=== PATIENT | male | born 1960 | race American Indian/Alaskan Native ===

== ENCOUNTER 2019-10-13 08:45 | Emergency (ER) | payer MEDICARE, OTHER ==
[~2019-10-13] VITALS: Ht 165.1 cm; Wt 72.6 kg
[2019-10-13] MEDS ORDERED: ASPIR 8181 MG PO (09:00)
[2019-10-13] MEDS ORDERED: VITAMIN D32000 UNI2 PO (09:01)
[2019-10-13] MEDS ORDERED: GLUCOTROL5 MG PO (09:01)
[2019-10-13] MEDS ORDERED: NEPHRO-VITE TA0.8 MG PO (09:02)
[2019-10-13] MEDS ORDERED: LOSARTAN POTASS25 MG PO (09:02)
[2019-10-13] MEDS ORDERED: VALIUM5 MG PO (09:13)
[2019-10-16] MEDS ORDERED: NORVASC5 MG PO (04:49)
== END 2019-10-13 09:59 | disposition home or self-care (01) ==
LOC: ED 08:45
DX: M43.6 Torticollis (principal); I10 Essential (primary) hypertension; E11.9 Type 2 diabetes mellitus without complications; F17.200 Nicotine dependence, unspecified, uncomplicated; Z79.82 Long term (current) use of aspirin; Z79.899 Other long term (current) drug therapy
CPT/HCPCS: 96372; 99283; J3360

== ENCOUNTER 2020-04-22 08:55 | Emergency (ER) | payer MEDICARE, OTHER ==
[~2020-04-22] VITALS: Ht 165.1 cm; Wt 72.6 kg
[~2020-04-22 08:55] MED LIST: ASPIR 8181 MG PO; GLUCOTROL5 MG PO; LOSARTAN POTASS25 MG PO; NEPHRO-VITE TA0.8 MG PO; NORVASC5 MG PO; VALIUM5 MG PO; VITAMIN D32000 UNI2 PO
--- OUTSIDE RECORDS SUMMARY | 2020-04-22 08:58 | XMS ---
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 Mayuri VISIT COUNT (12 MO.) 1 Emilio Delacruz TOTAL 4 NOTE: Visits indicate total known visits. ED/UCC VISIT TRACKING (12 MO.) 04/22/2020 08:56 TARIK Pat TYPE: Emergency COMPLAINT: - EXTREME PAIN 11/26/2019 10:32 Emilio HOLLIS TYPE: Emergency COMPLAINT: - BACK PAIN 10/16/2019 04:26 TARIK Pat TYPE: Emergency COMPLAINT: - BACK PAIN DIAGNOSES: - Sepsis, unspecified organism - Type 2 diabetes mellitus without complications - Cervicalgia - Low back pain - Essential (primary) hypertension - halfway (current) use of aspirin - Allergy status to other drugs, medicaments and biological sub - Nicotine dependence, unspecified, uncomplicated - Other care home (current) drug therapy - Dependence on renal dialysis 10/13/2019 08:46 TARIK Lance [place] TYPE: Emergency COMPLAINT: - LT SIDE NECK/ARM PAIN, NO INJURY DIAGNOSES: - Essential (primary) hypertension - Type 2 diabetes mellitus without complications - Torticollis - Other care home (current) drug therapy - Cervicalgia - Nicotine dependence, unspecified, uncomplicated - 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 Disruption of external operation (surgical) wound, not elsewh 1. Disruption of external operation (surgical) wound, not elsewh 2. End stage renal disease 3. Hypertensive chronic kidney disease with stage 5 chronic kidn 4. Bacteremia 5. Personal history of nicotine dependence 6. Type 2 diabetes mellitus with diabetic chronic kidney disease 7. Dependence on renal dialysis 8. halfway (current) use of insulin 9. Methicillin resistant Staphylococcus aureus infection as the 10. 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 Other disorders of mineral metabolism 12. Hyperkalemia 13. Hypermagnesemia 14. Anemia, unspecified 10/16/2019 10:53 Emilio Aniya Ed Siddiqui [place] TYPE: Medical Surgical COMPLAINT: - BACK PAIN DIAGNOSES: 0. Dorsalgia, unspecified 1. Sepsis due to Methicillin resistant Staphylococcus aureus 2. Intraspinal abscess and granuloma 3. End stage renal disease 4. Pneumonia, unspecified organism 4. Psoas muscle abscess 5. Abscess of liver 5. Psoas muscle abscess 6. Abscess of liver 6. Pneumonia due to Methicillin resistant Staphylococcus aureus 7. Staphylococcal arthritis, vertebrae 8. Osteomyelitis of vertebra, lumbar region 9. Septic arterial embolism 10. Hypertensive heart and chronic kidney disease with heart fail 11. Chronic diastolic (congestive) heart failure 12. Hypo-osmolality and hyponatremia 13. Cellulitis of right lower limb 14. Disorder of bone, unspecified 15. Type 2 diabetes mellitus with diabetic chronic kidney disease 16. Other disorders of plasma-protein metabolism, not elsewhere c 17. Other disorders of bilirubin metabolism 18. Fluid overload, unspecified 19. Hyperkalemia 20. Solitary pulmonary nodule 21. Acute respiratory distress 22. Anemia in chronic kidney disease 23. Nicotine dependence, cigarettes, uncomplicated 24. Non-pressure chronic ulcer of other part of right foot with u 25. Discitis, unspecified, lumbar region 26. Cannabis use, unspecified, uncomplicated 27. Abnormal levels of other serum enzymes 28. Calculus of gallbladder without cholecystitis without obstruc 29. Periapical abscess without sinus 30. Glossitis 31. Fatty (change of) liver, not elsewhere classified 32. Patient's noncompliance with renal dialysis 33. 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
[2020-04-22] MEDS ORDERED: ULTRAM50 MG PO (09:16)
[2020-04-22] MEDS ORDERED: NORCO 10-325 T1 EACH PO (09:38)
== END 2020-04-22 09:50 | disposition home or self-care (01) ==
LOC: ED 08:55
DX: E11.42 Type 2 diabetes mellitus with diabetic polyneuropathy (principal); I12.0 Hypertensive chronic kidney disease with stage 5 chronic kidney disease or end stage renal disease; E11.22 Type 2 diabetes mellitus with diabetic chronic kidney disease; N18.6 End stage renal disease; Z99.2 Dependence on renal dialysis; F17.200 Nicotine dependence, unspecified, uncomplicated; Z88.8 Allergy status to other drugs, medicaments and biological substances; Z79.899 Other long term (current) drug therapy; Z79.82 Long term (current) use of aspirin; Z79.84 Long term (current) use of oral hypoglycemic drugs
CPT/HCPCS: 99283

== ENCOUNTER 2021-04-11 19:58 | Emergency (ER) | payer MEDICARE, OTHER ==
[~2021-04-11] VITALS: Ht 165.1 cm; Wt 72.6 kg
[~2021-04-11 19:58] MED LIST changes: +NORCO 10-325 T1 EACH PO; +ULTRAM50 MG PO
--- OUTSIDE RECORDS SUMMARY | 2021-04-11 20:00 | XMS ---
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 \F\ [employer] PHONE: [phone] MIRELA FOWLER [facility] Current PHONE: [phone] [facility] 04/23/2020-[facility] PHONE: [phone] Sandy has no Care Guidelines for this patient. Care History Medical/Surgical 04/23/2020 [facility] - PATIENT IS A [facility] ELIGIBLE, \T\middot;\T\nbsp; PLEASE REFER PATIENT TO [facility] FOR NON EMERGENT MEDICAL NEEDS. \T\middot;\T\nbsp; [facility] CAN SEE PATIENTS SAME DAY FOR APTS IF PATIENT CALLS FIRST THING IN THE MORNING. Mayuri VISIT COUNT (12 MO.) 2 TARIK Delacruz TOTAL 2 NOTE: Visits indicate total known visits. ED/UCC VISIT TRACKING (12 MO.) 04/11/2021 19:58 TARIK Lance [place] TYPE: Emergency COMPLAINT: - SHORTNESS OF BREATH 04/22/2020 08:[address] 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 - Dorsalgia, unspecified - Dependence on renal dialysis - Type 2 diabetes mellitus with diabetic chronic kidney disease - Other penitentiary (current) drug therapy - Type 2 diabetes mellitus with diabetic polyneuropathy - Hypertensive chronic kidney disease with stage 5 chronic kidney disease or end stage renal disease - skilled nursing (current) use of aspirin - Allergy status to other drugs, medicaments and biological substances - End stage renal disease - Nicotine dependence, unspecified, uncomplicated INPATIENT VISIT TRACKING (12 MO.) No inpatient visits to display in this time frame [email or web address]
[2021-04-11] MEDS ORDERED: AMITRIPTYLINE H25 MG PO (20:06)
--- NOTE | 2021-04-14 13:31 | EKG ---
[facility] [address] [facility] [place] [address] Signed Sinus tachycardia T wave abnormality, consider lateral ischemia Abnormal ECG When compared with ECG of 16-OCT-2019 06:23, T wave inversion now evident in Lateral leads Confirmed by MARCO WATERS MD ([id number]) on 04/14/2021 1:31:19 PM Electronically Signed By: MARCO WATERS MD 04/14/21 1331 PATIENT NAME: MARY ANNDEVIN TRESA Electrocardiogram DATE OF : 62 PHYSICIAN: MARCO WTAERS MD REPORT #: [id number] REPORT IS CONFIDENTIAL AND NOT TO BE RELEASED WITHOUT AUTHORIZATION
== END 2021-04-12 06:15 | disposition home or self-care (01) ==
LOC: ED 19:58
DX: J81.1 Chronic pulmonary edema (principal); Z99.2 Dependence on renal dialysis; I10 Essential (primary) hypertension; E11.9 Type 2 diabetes mellitus without complications; F17.200 Nicotine dependence, unspecified, uncomplicated; Z20.822 Contact with and (suspected) exposure to COVID-19; Z88.8 Allergy status to other drugs, medicaments and biological substances; Z88.5 Allergy status to narcotic agent; Z79.899 Other long term (current) drug therapy; Z79.82 Long term (current) use of aspirin
CPT/HCPCS: 36600; 71045; 80053; 82803; 83735; 83880; 84484; 85025; 93005; 93010; 94660; 96374; 96375; 99285-25; J1940; J2270; J2405; U0003

== ENCOUNTER 2021-08-31 15:00 | Emergency (ER) | payer MEDICARE, OTHER ==
[~2021-08-31] VITALS: Ht 165.1 cm; Wt 72.6 kg
[~2021-08-31 15:00] MED LIST changes: +AMITRIPTYLINE H25 MG PO
--- OUTSIDE RECORDS SUMMARY | 2021-08-31 15:02 | XMS ---
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 04/23/2020-[facility] PHONE: [phone] Sandy has no Care Guidelines for this patient. Care History Medical/Surgical 04/23/2020 [facility] - PATIENT [facility] ELIGIBLE, \T\middot;\T\nbsp; PLEASE REFER PATIENT TO [facility] FOR NON EMERGENT MEDICAL NEEDS. \T\middot;\T\nbsp; [facility] CAN SEE PATIENTS SAME DAY FOR APTS IF PATIENT CALLS FIRST THING IN THE MORNING. Mayuri VISIT COUNT (12 MO.) 2 TARIK Delacruz TOTAL 2 NOTE: Visits indicate total known visits. ED/UCC VISIT TRACKING (12 MO.) 08/31/2021 15:00 TARIK Lance [place] TYPE: Emergency COMPLAINT: - ARM PAIN/ INJ 04/11/2021 19:[address] 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
== END 2021-09-01 00:25 | disposition short-term general hospital (02) ==
LOC: ED 15:00
DX: M79.632 Pain in left forearm (principal); M79.631 Pain in right forearm; F17.200 Nicotine dependence, unspecified, uncomplicated; I10 Essential (primary) hypertension; E11.9 Type 2 diabetes mellitus without complications; Z79.82 Long term (current) use of aspirin; Z79.899 Other long term (current) drug therapy; Z88.8 Allergy status to other drugs, medicaments and biological substances; Z20.822 Contact with and (suspected) exposure to COVID-19
CPT/HCPCS: 70450; 71045; 72125; 73090; 80053; 81001; 85025; 96374; 96375; 96376; 99285-25; A9270; C9803; J2270; J2405; U0003

== ENCOUNTER 2022-06-25 15:24 | Emergency (ER) | payer MEDICARE, OTHER ==
[~2022-06-25] VITALS: Ht 165.1 cm; Wt 61.2 kg
--- OUTSIDE RECORDS SUMMARY | 2022-06-25 15:28 | XMS ---
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 PHONE: [phone] Sandy has no Care Guidelines for this patient. Care History Medical/Surgical 04/23/2020 [facility] - PATIENT IS A [facility] ELIGIBLE, \T\middot;\T\nbsp; PLEASE REFER PATIENT TO [facility] FOR NON EMERGENT MEDICAL NEEDS. \T\middot;\T\nbsp; [facility] CAN SEE PATIENTS SAME DAY FOR APTS IF PATIENT CALLS FIRST THING IN THE MORNING. Mayuri VISIT COUNT (12 MO.) 1 [facility] 2 TARIK Delacruz TOTAL 3 NOTE: Visits indicate total known visits. ED/UCC VISIT TRACKING (12 MO.) 06/25/2022 15:26 TARIK Lance [place] TYPE: Emergency COMPLAINT: - L ANKLE INJ [facility] DIAGNOSES: - Cervicalgia - Paresthesia of skin - Unspecified injury of head, initial encounter - Fall - Unspecified fall, initial encounter 08/31/2021 15:00 TARIK Pat TYPE: Emergency COMPLAINT: - ARM PAIN/ INJ DIAGNOSES: - Nicotine dependence, unspecified, uncomplicated - senior living (current) use of aspirin - Other intermediate (current) drug therapy - Pain in right forearm - Essential (primary) hypertension - Pain in left forearm - Pain in right wrist - Type 2 diabetes mellitus without complications - Allergy status to other drugs, medicaments and biological substances INPATIENT VISIT TRACKING (12 MO.) No inpatient visits to display in this time frame [email or web address]
[2022-06-25] MEDS ORDERED: HYDROCODON-ACE1 EA10 PO (19:56)
== END 2022-06-25 20:27 | disposition home or self-care (01) ==
LOC: ED 15:24
DX: S92.002A Unspecified fracture of left calcaneus, initial encounter for closed fracture (principal); E11.9 Type 2 diabetes mellitus without complications; I10 Essential (primary) hypertension; F17.200 Nicotine dependence, unspecified, uncomplicated; Z99.2 Dependence on renal dialysis; Z88.8 Allergy status to other drugs, medicaments and biological substances; Z79.82 Long term (current) use of aspirin; Z79.899 Other long term (current) drug therapy; W01.0XXA Fall on same level from slipping, tripping and stumbling without subsequent striking against object, initial encounter
CPT/HCPCS: 73610; 73630; 73650; A9270

== ENCOUNTER 2024-05-23 10:34 | Emergency (ER) | payer MEDICARE, OTHER ==
[~2024-05-23] VITALS: Ht 165.1 cm; Wt 72.3 kg
[~2024-05-23 10:34] MED LIST changes: +HYDROCODON-ACE1 EA10 PO
[2024-05-23 13:11] LABS: EOSINOPHILS 0.1 % (0-6); HEMATOCRIT 39.4 % (35.0-50.0); HEMOGLOBIN 13.1 g/dL (12.0-18.0); LYMPHOCYTES 1.5 % (24-44); MCH 33.2 (27-36); MCHC 33.2 g/dl (30-36); MCV 99.9 fl (81-99); MONOCYTES 4.9 % (0-12); NEUTROPHILS 93.5 % (39-80); PLATELET COUNT 141 K/uL (140-440); RBC 3.94 M/ul (4.3-5.7); RDW 19.9 (10.5-15.0)
[2024-05-23] MEDS ORDERED: CEFTRIAXONE/SODIUM CHLORIDE 2 GM/100 ML PIGGYBACK IV ONE (13:15)
[2024-05-23] MEDS ORDERED: CEPHALEXIN500 M1 PO (14:08)
[2024-05-23] MEDS ORDERED: HYDROCODON-ACE1 EA10 PO (14:13)
[2024-05-23 14:27] VITALS: BP 129/84
[2024-05-27] MEDS ORDERED: NORVASC5 MG PO (12:47)
[2024-05-27] MEDS ORDERED: LOSARTAN POTASS25 MG PO (12:47)
== END 2024-05-23 14:36 | disposition home or self-care (01) ==
LOC: ED 10:34
PROVIDERS: Emergency Medicine
DX: L03.116 Cellulitis of left lower limb (principal); I10 Essential (primary) hypertension; E11.9 Type 2 diabetes mellitus without complications; F17.200 Nicotine dependence, unspecified, uncomplicated; Z88.8 Allergy status to other drugs, medicaments and biological substances; Z79.82 Long term (current) use of aspirin; Z79.899 Other long term (current) drug therapy
CPT/HCPCS: 36415; 80053; 85025; 93971; 96365; 99283-25; J0696

== ENCOUNTER 2024-06-02 22:40 | Emergency (ER) | payer MEDICARE, OTHER ==
[~2024-06-02] VITALS: Ht 165.1 cm; Wt 82.0 kg
[~2024-06-02 22:40] MED LIST changes: +CEPHALEXIN500 M1 PO
[2024-06-02] MEDS ORDERED: HYDROCODONE BIT/ACETAMINOPHEN 5/325 MG 1 TAB HOME.PACK PO ONE (23:15)
[2024-06-02 23:53] VITALS: BP 140/83
== END 2024-06-02 23:53 | disposition home or self-care (01) ==
LOC: ED 22:40
DX: Z48.00 Encounter for change or removal of nonsurgical wound dressing (principal); I12.0 Hypertensive chronic kidney disease with stage 5 chronic kidney disease or end stage renal disease; E11.22 Type 2 diabetes mellitus with diabetic chronic kidney disease; N18.6 End stage renal disease; Z99.2 Dependence on renal dialysis; F17.200 Nicotine dependence, unspecified, uncomplicated; Z88.8 Allergy status to other drugs, medicaments and biological substances; Z79.899 Other long term (current) drug therapy; Z79.82 Long term (current) use of aspirin
CPT/HCPCS: A9270

== ENCOUNTER 2025-06-26 05:38 | Day surgery (SDC) | payer MEDICARE, OTHER ==
[~2025-06-26] VITALS: Ht 162.6 cm; Wt 69.0 kg
[~2025-06-26 05:38] MED LIST changes: +LACTATED RINGER'S 1,000 ML IV SCH; +NEPHRO VITAMIN0.8 MG PO; +VELPHORO500 MG PO; +VITAMIN D250 MCG PO
[2025-06-26 06:34] VITALS: BP 119/57
[2025-06-26] MEDS ORDERED: HYDROCODON-ACE1 EA10 PO (06:41)
[2025-06-26] MEDS ORDERED: AMP/SULBACTAM SOD 3 GM in SODIUM CHLORIDE 0.9% 100 ML IV ONE (07:00)
[2025-06-26] MEDS ORDERED: IBLOOD GLUCOSE TEST STRIP 1 EA TEST VI PRN (07:00)
[2025-06-26] MEDS ORDERED: LIDOCAINE HCL 1% 5 ML SDV INJ ONE (07:00)
[2025-06-26] MEDS ORDERED: SODIUM CHLORIDE 0.9% 1,000 ML IV ONE (07:18)
--- NOTE | 2025-06-26 07:24 | NUR ---
PT NOT AVAILABLE FOR VISIT. PROVIDED PRAYER.
[2025-06-26] MEDS ORDERED: LIDOCAINE HCL 2% 5 ML SDV ONE (07:37)
[2025-06-26 10:48] VITALS: BP 119/54
[2025-06-26] MEDS ORDERED: SODIUM CHLORIDE 0.9% 1,000 ML IV SCH (11:45)
--- NOTE | 2025-06-26 11:48 | NUR ---
06/26/25 1148 Arely Cobb 0933 PT ARRIVED TO PACU ON 4L NC, PT ASLEEP AND RESP EVEN AND UNLABORED. VSS. CBG 78 1007 O2 REMOVED. PT WAKES EASILY AND IS REORIENTED TO PACU. 1020 MD AT BEDSIDE TALKING TO PT. ALL QUESTIONS ANSWERED. 1040 DC INSTRUCTIONS GIVEN WITH POLYP, GASTRITIS, AND FOLLOW UP EDUCATION GIVEN. 1105 PT DRESSED HIMSELF AND DC VIA HIS OWN WALKER TO HIS AND ALL INSTRUCTIONS GIVEN TO AND PT, RX CALLED IN AND PT VERBALIZED UNDERSTANDING.
--- NOTE | 2025-07-01 17:13 | PATH ---
[facility] [address] [place], [place] [address] Signed SPECIMEN(S): A TRANSVERSE COLON POLYP SPECIMEN(S): B TRANSVERSE COLON POLYP SPECIMEN(S): C CECUM COLON POLYP SPECIMEN(S): D COLON POLYP AT 25 CM SPECIMEN(S): E RECTAL POLYP AT 5 CM SPECIMEN(S): F ANTRUM BIOPSY SPECIMEN(S): G GE JUNCTION SPECIMEN SOURCE: A. TRANSVERSE COLON POLYP B. TRANSVERSE COLON POLYP C. CECUM COLON POLYP D. COLON POLYP AT 25 CM E. RECTAL POLYP AT 5 CM F. ANTRUM BIOPSY G. GE JUNCTION CLINICAL HISTORY: Positive guaiac, GERD A-E) polyp, F/G) biopsy FINAL PATHOLOGIC DIAGNOSIS: A. Colon, transverse polyp, biopsy: - Tubular adenoma (1 of 3 pieces); negative for high-grade dysplasia and malignancy. - Benign, unremarkable colonic mucosa (2 of 3 pieces). B. Colon, transverse polyp, biopsy: - Portions of tubular adenoma (2 of 2 pieces). - Negative for high-grade dysplasia and malignancy. C. Colon, cecum polyp, biopsy: - Portions of tubular adenoma (6 of 6 pieces). - Negative for high-grade dysplasia and malignancy. D. Colon, polyp at 25 cm, biopsy: - Tubular adenoma. - Negative for high-grade dysplasia and malignancy. E. Rectum, polyp at 5 cm, biopsy: - Smaller piece: Tubular adenoma; negative for high-grade dysplasia and malignancy. - Larger piece: Benign, unremarkable colonic mucosa. F. Stomach, antrum, biopsy: - Gastric antral-type mucosa with patchy mild chronic inflammation. PATIENT NAME: DEVIN REESE PATHOLOGY DATE OF : 62 REPORT #: [id number] PHYSICIAN: JI CHILDRESS [facility] REPORT IS CONFIDENTIAL AND NOT TO BE RELEASED WITHOUT AUTHORIZATION [facility] [address] [place], [place] [address] Signed - No acute or active inflammation identified. - No H. pylori-like organisms identified on routine HE-stained histologic sections. - Negative for intestinal metaplasia, dysplasia, and malignancy. G. Gastroesophageal junction, biopsy: - Haywood's esophagus. - Negative for dysplasia and malignancy. SDL MICROSCOPIC EXAMINATION: Histologic sections of all submitted blocks are examined by light microscopy. These findings, together with the gross examination, support the pathologic diagnosis. GROSS DESCRIPTION: A. The specimen, labeled and designated "Ronaldo, transverse colon polyp," is received in formalin and consists of three abdul soft tissue fragments, ranging from 0.2-0.3 cm. Entirely submitted in (A1). B. The specimen, labeled and designated "Ronaldo, transverse colon polyp #2," is received in formalin and consists of two abdul soft tissue fragments, ranging from 0.2-0.3 cm. Entirely submitted in (B1). C. The specimen, labeled and designated "Ronaldo, cecum colon polyps," is received in formalin and consists of six abdul soft tissue fragments, ranging from 0.4-0.8 cm. Entirely submitted in (C1). D. The specimen, labeled and designated "Ronaldo, colon polyp at 25 cm," is received in formalin and consists of one abdul soft tissue fragment, 0.4 cm. Entirely submitted in (D1). E. The specimen, labeled and designated "Ronaldo, rectal polyp at 5 cm," is received in formalin and consists of two abdul soft tissue fragments, ranging from 0.7-1.0 cm. Entirely submitted in (E1). F. The specimen, labeled and designated "Ronaldo, antrum biopsy," is received in formalin and consists of three abdul soft tissue fragments, ranging from 0.3-0.6 cm. Entirely submitted in (F1). G. The specimen, labeled and designated "Ronaldo, GE junction," is received in formalin and consists of three abdul soft tissue fragments, ranging from 0.1-0.4 cm. Entirely submitted in (G1). AB (under the direct supervision of a pathologist) The Gross Description was prepared using a voice recognition system. The report was reviewed for accuracy; however, sound-alike word errors, addition and/or deletions may occur. If there is any PATIENT NAME: DEVIN REESE PATHOLOGY DATE OF : 62 REPORT #: [id number] PHYSICIAN: JI CHILDRESS PCP: [facility] REPORT IS CONFIDENTIAL AND NOT TO BE RELEASED WITHOUT AUTHORIZATION [address] [address] Signed question about this report, please contact Client Services. ADDITIONAL NOTES: Immunohistochemical and/or in situ hybridization studies if performed in this case included appropriate positive controls that reacted as expected. This test was developed and its performance characteristics determined by [facility]. It has not been cleared or approved by the U.S. Food and Drug Administration. The FDA has determined that such clearance or approval is not necessary. This test is used for clinical purposes. It should not be regarded as investigational or for research. [facility] is certified under the Clinical Laboratory Improvement Amendments of 1988 (CLIA) as qualified to perform high complexity clinical laboratory testing. PERFORMING LABORATORY: Technical component was performed by [facility], [address] [place] [id number] (CLIA# [id number]). Professional interpretation was performed by [facility], [address] [place] [id number] (CLIA#: [id number]). Diagnostician: Veronika Crawford MD Pathologist Electronically Signed 07/01/2025 Copies: ~ PATIENT NAME: DEVIN REESE PATHOLOGY DATE OF : 62 REPORT #: [id number] PHYSICIAN: JI CHILDRESS PCP: [facility] REPORT IS CONFIDENTIAL AND NOT TO BE RELEASED WITHOUT AUTHORIZATION
== END 2025-06-26 11:05 | disposition home or self-care (01) ==
LOC: DS 05:38
PROVIDERS: ATTEND Surgery
PROC: 0DBH8ZZ Excision of Cecum, Via Natural or Artificial Opening Endoscopic (ICD-10-PCS; 2025-06-26)
PROC: 0DBL8ZZ Excision of Transverse Colon, Via Natural or Artificial Opening Endoscopic (ICD-10-PCS; 2025-06-26)
PROC: 0DBP8ZZ Excision of Rectum, Via Natural or Artificial Opening Endoscopic (ICD-10-PCS; 2025-06-26)
PROC: 0DB48ZX Excision of Esophagogastric Junction, Via Natural or Artificial Opening Endoscopic, Diagnostic (ICD-10-PCS; principal; 2025-06-26 07:30)
PROC: 0DB68ZX Excision of Stomach, Via Natural or Artificial Opening Endoscopic, Diagnostic (ICD-10-PCS; 2025-06-26 07:30)
DX: Z12.11 Encounter for screening for malignant neoplasm of colon (principal); D12.3 Benign neoplasm of transverse colon; D12.0 Benign neoplasm of cecum; D12.8 Benign neoplasm of rectum; D12.5 Benign neoplasm of sigmoid colon; D64.9 Anemia, unspecified; K22.70 Barrett's esophagus without dysplasia; K21.9 Gastro-esophageal reflux disease without esophagitis; K29.50 Unspecified chronic gastritis without bleeding; I12.0 Hypertensive chronic kidney disease with stage 5 chronic kidney disease or end stage renal disease; E11.22 Type 2 diabetes mellitus with diabetic chronic kidney disease; N18.6 End stage renal disease; G89.29 Other chronic pain; M54.42 Lumbago with sciatica, left side; M54.41 Lumbago with sciatica, right side; F17.200 Nicotine dependence, unspecified, uncomplicated; Z99.2 Dependence on renal dialysis; Z79.82 Long term (current) use of aspirin; Z79.899 Other long term (current) drug therapy; Z88.8 Allergy status to other drugs, medicaments and biological substances
CPT/HCPCS: 00813; 88305; J0295; J2003; J2704; J7030; J7121